=== PATIENT | female | born 1990 | race Caucasian/White ===

== ENCOUNTER 2021-01-30 02:16 | Inpatient (IN) | payer OTHER ==
[~2021-01-30] VITALS: Ht 170.2 cm; Wt 105.8 kg
[2021-01-30] VITALS (11 sets, daily range): BP systolic 108–131; BP diastolic 54–71
[2021-01-30] MEDS ORDERED: ONDANSETRON PF 4 MG/2 ML VIAL. IVP PRN (03:00)
[2021-01-30] MEDS ORDERED: ANTI-COAG MONITOR BY PHARMACY. MC PRN (03:45)
--- NOTE | 2021-01-30 05:33 | NUR ---
Pt arrived at 0210 via EMS on a gurney. Pt moved self to bed. Assessment and vitals completed. VSS. Afebrile. Bilateral lung sounds are clear. Alert and oriented x 4. Admission paperwork completed. notified and orders received. Pt oriented to room. BSC provided. Pt resting comfortably in bed.
[2021-01-30 07:42] LABS: BASO # 0.1 x10^3/uL (0.0-0.2); BASO % 1 % (0-3); EOS # 0.2 x10^3/uL (0.0-0.7); EOS % 3 % (0-3); HEMATOCRIT 35.8 % (36.0-47.0); HEMOGLOBIN 11.4 g/dL (12.0-15.5); LYMPH # 1.1 x10^3/uL (1.0-4.8); LYMPH % 19 % (24-48); MEAN CORPUSCULAR HEMOGLOBIN 23 pg (25-35); MEAN CORPUSCULAR HGB CONC 32 g/dL (31-37); MEAN CORPUSCULAR VOLUME 73 fL (79-100); MONO # 0.4 x10^3/uL (0.0-1.1); MONO % 7 % (0-9); NEUT # 4.2 x10^3/uL (1.8-7.7); NEUT % 71 % (31-73); PLATELET COUNT 123 x10^3/uL (140-400); RED BLOOD COUNT 4.94 x10^6/uL (3.50-5.40); RED CELL DISTRIBUTION WIDTH 18.5 % (11.5-14.5); WHITE BLOOD COUNT 5.9 x10^3/uL (4.0-11.0)
[2021-01-30 07:54] LABS: ALBUMIN 3.8 g/dL (3.4-5.0); CALCIUM 8.8 mg/dL (8.5-10.1); CREATININE 0.9 mg/dL (0.6-1.0); POTASSIUM 3.7 mmol/L (3.5-5.1); TOTAL PROTEIN 7.8 g/dL (6.4-8.2)
[2021-01-30] MEDS: MORPHINE SULFATE 2 MG/ML INJ. IVP PRN ×2 (08:42→19:37)
--- NOTE | 2021-01-30 10:28 | HP ---
DATE OF SERVICE: 01/30/2021 ADMIT DATE: 01/30/2021 HISTORY OF PRESENT ILLNESS: The patient is a 30-year-old female patient who presented to the Emergency Room with a complaint of redness, swelling and pain in her left lower extremity that she rated as 6/10 in severity. The pain is mostly in her left groin. Her symptoms started about 3 days. She denied any trauma. Denies any use of control pills. Denied any recent hospitalizations, any surgeries. Denied any family history of DVT or PE. She was seen apparently at [facility] and was sent to the Emergency Department to rule out DVT. She was extensively investigated and has had both lab work and imaging studies. Her lab work was essentially unremarkable and her left lower extremity venous Doppler ultrasound showed that she has deep vein thrombosis of the left lower extremity throughout involving the common femoral, superficial femoral, femoral vein junction and main femoral vein. Veins of the proximal calf are also imaged. She did have also CT angio of the chest, abdomen and pelvis and it showed that the patient has large saddle pulmonary embolus correlates with troponin for evidence of right heart strain. Extensive thrombus in the visualized left upper extremity extending into the left external iliac vein and common iliac vein, the level of the IVC confluence tiny areas wedge-shaped hypoenhancement at the splenium may relate to splenic infarct, diffuse hepatic steatosis. The patient was started on Lovenox 1 mg/kg and was transferred to [facility] for further evaluation to consult the patient service representative as well as the human relations professor. PAST MEDICAL HISTORY: Unremarkable. OBSTETRIC HISTORY: She is 4, para 3 and her last delivery was in August of this year. She has 3 children, 4-year, 1-year and 5-month old. PAST SURGICAL HISTORY: Unremarkable. ALLERGIES: She has no known drug allergies. MEDICATIONS: She is currently on no medication by prescription or otherwise. FAMILY HISTORY: Her father in his early 50s because of myocardial infarction. Her mother lives in [place] and she has cervical and ovarian cancer that apparently treated. She has also diabetes and chronic kidney disease. She has a total of 9 brothers and sisters. All of them apparently seemed to be healthy. No history of DVT or pulmonary embolism. She herself has 3 successful pregnancies and she has never had any miscarriages. PHYSICAL EXAMINATION: GENERAL: On arrival to the Emergency Room, she looked well and was clearly in no apparent respiratory distress. There is no pallor, jaundice, cyanosis or thyromegaly. No jugular venous distention. No limb edema. VITAL SIGNS: Her heart rate was 110, blood pressure was 130/75, temperature 98.7, respiratory rate was 18 and oxygen saturation was 100% on room air. HEAD, EYES, EARS, NOSE AND THROAT: Normocephalic, atraumatic. NECK: Supple. HEART: Showed normal first and second heart sounds, no gallop, rub or murmur. CHEST: Clear to auscultation, no crepitation or rhonchi. ABDOMEN: Distended, soft, nontender. NEUROLOGIC: She was awake, alert, responding appropriately. All cranial nerves intact. She moves upper extremities without difficulty. She has difficulty walking because of pain in her left lower extremity that is more swollen and somewhat red. LABORATORY DATA: On arrival showed a white cell count 7600, hemoglobin 11.7, hematocrit 36.9, MCV 73 and platelet count of 133,000 with manual differential shows 73% polymorphs, 19% lymphocytes and 6% monocytes. Her chemistry showed a serum sodium 137, potassium 3.7, chloride 100, bicarbonate 26, anion gap of 11, BUN 11, creatinine 0.7. Estimated GFR was 98 mL per minute. Her glucose was 90, calcium was 9.3, total bilirubin, AST, ALT, alkaline phosphatase were normal. CK was 87. Total protein 8.2 and albumin was 4. Her prothrombin time, INR and APTT were normal. She has had venous Doppler ultrasound of the left lower extremity, which showed that she has deep vein thrombosis of the left lower extremity veins throughout. She did have a CT angio of the chest, abdomen and pelvis which showed that the visualized portion of the thyroid are unremarkable. No enlarged mediastinal lymphadenopathy identified. Heart size is normal. No pericardial effusion. Thoracic aorta has a normal course and caliber. Pulmonary artery is not enlarged. There is a subtle pulmonary embolus noted extending predominantly into the left main pulmonary artery. There is mild enlargement of the right lateral ventricle and right atrium. Airways are patent. No consolidation or pneumothorax. No suspicious lung nodules are identified. No pleural effusion or thickening. Diffuse hepatic steatosis, tiny wedge-shaped areas of peripheral hypoenhancement noted in the spleen. Pancreas, gallbladder and adrenals are unremarkable. No perinephric inflammation or hydronephrosis. No renal or ureteral calculi are identified. The bladder is decompressed, not evaluated. Uterus is not enlarged. No abnormal adnexal masses. Large and small bowel are unremarkable. Appendix is not identified. No free intraabdominal or free air or fluid. No obstruction. Abdominal aorta has normal course and caliber thrombus noted within the left common femoral vein extending into the external iliac vein and common iliac to the level of the IVC confluence. No enlarged intra-abdominal lymph nodes are identified. No suspicious osseous lesions or acute fractures. ASSESSMENT AND PLAN: In summary, this is a 30-year-old female patient who presented with pain and swelling of her left lower extremity. She denied any chest pain, shortness of breath, cough, phlegm or hemoptysis. She was diagnosed with saddle embolus and also left lower extremity embolus that extends all the way to the IVC confluence. This seems to be an unprovoked clot and she was started on Lovenox 1 mg/kg. She does not require any oxygen and she does not have any chest pain, most of the complaint has been in her left lower extremity. My plan is to consult the patient service representative as well as the human relations professor and decide on further management accordingly. Her is in [place] and I advised her that she probably needs to call him to come home. She is not in any critical condition now, but given all this clots and the fact that they have 3 young children, she probably needs assistance with that. DAVID DR: Silvia TID: [id number]
--- NOTE | 2021-01-30 11:56 | CONS ---
DATE OF CONSULTATION: 01/30/2021 PULMONARY CONSULTATION ATTENDING PHYSICIAN: Mega Wing MD REASON FOR CONSULTATION: Pulmonary embolism and DVT. HISTORY OF PRESENT ILLNESS: The patient is a 30-year-old obese patient with a BMI of 34. She has no chronic medical problems. She was seen in the Emergency Room at [facility] with complaint of a sudden onset of swelling in her left thigh. She was also complaining of pain. She could not ambulate. The patient denies any shortness of breath, denied any chest pain. The patient denied any recent surgery. Denied any history of prolonged immobilization. The patient is not on any control pills. The patient underwent imaging studies and I have reviewed her CT angiogram. The patient had evidence of a large saddle embolism involving the distal left main pulmonary artery. There was enlargement of the right lateral ventricle as well. The patient was also noted to have a suspected splenic infarct. She also had thrombus noted in the left common femoral vein extending into the external iliac vein and common iliac vein to the level of IVC confluence. No significant intra-abdominal lymph nodes were identified. I have been asked to see her for further evaluation. She is hemodynamically stable. The patient was started on Lovenox. There is no family history of hypercoagulable state. PAST MEDICAL HISTORY: Essentially unremarkable. She has 3 kids prior to. No thromboembolic history in the past pregnancies. PAST SURGICAL HISTORY: Unremarkable. ALLERGIES: None. MEDICATIONS: Reviewed as listed in the [facility] including Lovenox. REVIEW OF SYSTEMS: A 12-point system obtained. Pertinent positives discussed in my present illness, otherwise noncontributory. All systems that were negative were reviewed as well. FAMILY HISTORY: Negative for hypercoagulable panel. ALLERGIES: None. PHYSICAL EXAMINATION: VITAL SIGNS: Reviewed. Pulse ox 98% on room air. Blood pressure stable, 121 systolic. NECK: Supple. LUNGS: Clear. CARDIOVASCULAR: With a regular rate. ABDOMEN: Soft, nontender. EXTREMITIES: With swelling in the left thigh. LABORATORY DATA: Her labs are reviewed. White cell count 5.9, hemoglobin 11.4 and platelets are 123. BUN 12, creatinine 0.9. DIAGNOSTIC DATA: Her venous Doppler of her lower extremity revealed DVT in the left lower extremity throughout. CT angiogram findings as discussed above. IMPRESSION: 1. Acute pulmonary embolism along with left lower extremity deep vein thrombosis in a patient who has no obvious risk factors. 2. She had 3 prior pregnancies and last one was 5 months ago. She had no history of thromboembolic disease during her previous pregnancies. She is not on any control pills. She has no known cancers. She has not been immobilized or had no recent surgery. She does have family history of ovarian cancer and cervical cancer in her mother. She is currently hemodynamically stable. She needs to be ruled out for hypercoagulable state. 3. No history of tobacco use or asthma. 4. Abnormal CT angiogram as well as venous Dopplers of her lower extremities as discussed above. 5. 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 RECOMMENDATIONS: 1. We will continue with present Lovenox and initiate Eliquis in the next 24 hours. 2. The patient will require minimum of 3-6 months of anticoagulation pending additional hypercoagulable workup as an outpatient. 3. We will obtain echocardiogram to assess for any significant RV dilatation. 4. CT abdomen and pelvis was also done and it did not show any significant masses or adenopathy causing any compression of the left common femoral vein, external iliac vein or common iliac vein. Thrombus was noted in these veins. 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 5. I discussed with the patient's mother and RN in detail. 6. We will follow along with you. Likely discharge in next 48 hours. 7. Consult IR d/w CARLOS/ Dr. Wing Total critical care time 39 minutes. MIRTA/BEVERLY DR: Andrew TID: [id number] MIS
--- NOTE | 2021-01-30 15:01 | NUR ---
SS following for discharge planning. SS reviewed pt chart and discussed with pt RN. Pt is from home with spouse and is currently on room air. Pulmonology and Hematology consulted for PE's and DVT's. SS will continue to follow for discharge planning.
[2021-01-30] MEDS: HYDROcodone/APAP 5/325MG 1 TAB TABLET PO PRN (22:25)
[2021-01-31 04:54] VITALS: BP 109/63
[2021-01-31 07:00] VITALS: BP 112/65
--- NOTE | 2021-01-31 09:08 | PDOC ---
PULMONARY PROGRESS NOTES DATE: 01/31/21 TIME: 09:05 Subjective no complains Vitals Vital Signs Date Time Temp Pulse Resp B/P (MAP) Pulse Ox O2 Delivery O2 Flow Rate FiO2 01/31/21 07:00 98.8 88 16 112/65 (81) 94 Room Air 98.8 General: Alert, No acute distress Lungs: Clear Cardiovascular: S1 Abdomen: Soft Neuro Exam: Alert Extremities: Other (left thigh swelling) Labs Laboratory Tests Test 01/30/21 07:30 White Blood Count 5.9 x10^3/uL (4.0-11.0) Red Blood Count 4.94 x10^6/uL (3.50-5.40) Hemoglobin 11.4 g/dL (12.0-15.5) Hematocrit 35.8 % (36.0-47.0) Mean Corpuscular Volume 73 fL (79-100) Mean Corpuscular Hemoglobin 23 pg (25-35) Mean Corpuscular Hemoglobin Concent 32 g/dL (31-37) Red Cell Distribution Width 18.5 % (11.5-14.5) Platelet Count 123 x10^3/uL (140-400) Neutrophils (%) (Auto) 71 % (31-73) Lymphocytes (%) (Auto) 19 % (24-48) Monocytes (%) (Auto) 7 % (0-9) Eosinophils (%) (Auto) 3 % (0-3) Basophils (%) (Auto) 1 % (0-3) Neutrophils # (Auto) 4.2 x10^3/uL (1.8-7.7) Lymphocytes # (Auto) 1.1 x10^3/uL (1.0-4.8) Monocytes # (Auto) 0.4 x10^3/uL (0.0-1.1) Eosinophils # (Auto) 0.2 x10^3/uL (0.0-0.7) Basophils # (Auto) 0.1 x10^3/uL (0.0-0.2) Sodium Level 137 mmol/L (136-145) Potassium Level 3.7 mmol/L (3.5-5.1) Chloride Level 102 mmol/L (98-107) Carbon Dioxide Level 27 mmol/L (21-32) Anion Gap 8 (6-14) Blood Urea Nitrogen 12 mg/dL (7-20) Creatinine 0.9 mg/dL (0.6-1.0) Estimated GFR (Cockcroft-Gault) 74.0 BUN/Creatinine Ratio 13 (6-20) Glucose Level 97 mg/dL (70-99) Calcium Level 8.8 mg/dL (8.5-10.1) Total Bilirubin 1.0 mg/dL (0.2-1.0) Aspartate Amino Transf (AST/SGOT) 16 U/L (15-37) Alanine Aminotransferase (ALT/SGPT) 24 U/L (14-59) Alkaline Phosphatase 94 U/L (46-116) Total Protein 7.8 g/dL (6.4-8.2) Albumin 3.8 g/dL (3.4-5.0) Albumin/Globulin Ratio 1.0 (1.0-1.7) Impression . 1. Acute pulmonary embolism along with left lower extremity deep vein thrombosis in a patient who has no obvious risk factors. 2. She had 3 prior pregnancies and last one was 5 months ago. She had no history of thromboembolic disease during her previous pregnancies. She is not on any control pills. She has no known cancers. She has not been immobilized or had no recent surgery. She does have family history of ovarian cancer and cervical cancer in her mother. She is currently hemodynamically stable. She needs to be ruled out for hypercoagulable state. 3. No history of tobacco use or asthma. 4. Abnormal CT angiogram as well as venous Dopplers of her lower extremities as discussed above. 5. 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 Plan . RECOMMENDATIONS: 1. We will continue with present Lovenox 2. The patient will require minimum of 3-6 months of anticoagulation pending additional hypercoagulable workup as an outpatient. 3. We will obtain echocardiogram to assess for any significant RV dilatation. 4. CT abdomen and pelvis was also done and it did not show any significant masses or adenopathy causing any compression of the left common femoral vein, external iliac vein or common iliac vein. Thrombus was noted in these veins. 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 5. I discussed with the patient's mother and RN in detail. 6. d/w IR in detail. Awaiting further rec regarding stenting of Iliac vein d/w IR/ GHAZALA Win MD Jan 31, 2021 09:08
[2021-01-31 11:00] VITALS: BP 118/67
--- NOTE | 2021-01-31 11:08 | NUR ---
SW following. Discussed with RN, pt from home with spouse, room air, regular diet. Pulmonology and Hematology following. RN advised no SW needs at this time. SW will continue to follow.
--- NOTE | 2021-01-31 12:39 | PN ---
DATE: 01/31/2021 SUBJECTIVE: The patient is resting, slightly propped up in bed, in no apparent distress. On questioning her, denied any complaint. The nursing staff did not voice any concerns, stated that she has an eventful night. PHYSICAL EXAMINATION: GENERAL: When I examined her, she looked pale, not jaundiced, cyanosed or thyromegaly. No jugular venous distention. No limb edema. VITAL SIGNS: Her heart rate was 88, blood pressure is 112/65, temperature was 98.8, respiratory rate was 16 and oxygen saturation was 94% on room air. HEAD, EYES, EARS, NOSE, AND THROAT: Normocephalic, atraumatic. NECK: Supple. HEART: Showed normal first and second heart sounds. No gallop or murmur. CHEST: Clear to auscultation, no crepitation or rhonchi. ABDOMEN: Distended, soft, nontender. NEUROLOGIC: She is grossly intact. EXTREMITIES: Examination of lower extremity showed the left lower extremity is more swollen than the right; however, there is no clubbing or cyanosis. LABORATORY DATA: She has no lab work today. ASSESSMENT: Acute pulmonary embolism and left lower extremity deep venous thrombosis that are unprovoked. She has no predisposing factor. Has 3 successful pregnancies. She is not on any control. The fact that the lower extremity deep vein thrombosis was involving on the left lower extremity arise the possibility of May-Thurner syndrome. PLAN: To continue with Lovenox. Await evaluation by the interventional radiologist regarding stenting of her left internal iliac vein. KELVIN/RADHA/BEVERLY DR: Silvia TID: [id number]
--- NOTE | 2021-01-31 12:49 | CARD ---
MR#: [id number] Date of Study: 01/30/2021 Ordering Physician: GHAZALA GUTIERREZ, Referring Physician: GHAZALA GUTIERREZ, Tech: Halima Johnson, [facility] APPROVED REPORT EXAM: Two-dimensional and M-mode echocardiogram with Doppler and color Doppler. Other Information Quality : AverageHR: 76bpm INDICATION Pulmonary Embolism 2D DIMENSIONS RVDd2.3 (2.9-3.5cm)Left Atrium(2D)2.2 (1.6-4.0cm) IVSd0.7 (0.7-1.1cm)Aortic Root(2D)2.5 (2.0-3.7cm) LVDd5.1 (3.9-5.9cm)LVOT Diameter2.0 (1.8-2.4cm) PWd0.7 (0.7-1.1cm)LVDs2.9 (2.5-4.0cm) FS (%) 43.9 %SV93.8 ml Aortic Valve AoV Peak Raul.161.6cm/sAoV VTI28.6cm AO Peak GR.10.4mmHgLVOT VTI 24.63cm AO Mean GR.6mmHg Mitral Valve MV E Uyhaxvmy14.0cm/sMV E Peak Gr.3mmHg MV DECEL [id number] A Jkjnnucy56.9cm/s MV E Mean Gr.2mmHgE/A Ratio1.4 TDI Lateral E' P. V10.23cm/sMedial E' P. V9.40cm/s E/Lateral E'7.8E/Medial E'8.5 Tricuspid Valve RAP [id number] Peak Gr.20mmHg [id number] LEFT VENTRICLE The left ventricle is normal size. There is normal left ventricular wall thickness. The left ventricu lar systolic function is normal and the ejection fraction is within normal range. The Ejection Fracti on is 50-55%. Septal motion consistent with conduction abnormality. Transmitral Doppler flow pattern is Grade II-pseudonormal filling dynamics. RIGHT VENTRICLE The right ventricle is normal size. There is normal right ventricular wall thickness. The right ventr icular systolic function is normal. ATRIA The left atrium size is normal. The right atrium size is normal. The interatrial septum is intact wit h no evidence for an atrial septal defect or patent foramen ovale as noted on 2-D or Doppler imaging. AORTIC VALVE The aortic valve is normal in structure and function. Doppler and Color Flow revealed no significant aortic regurgitation. There is no significant aortic valvular stenosis. Calculated aortic valve area is 2.86 cm2 with maximum pressure gradient of 11 mmHg and mean pressure gradient of 6 mmHg. MITRAL VALVE The mitral valve is normal in structure and function. There is no evidence of mitral valve prolapse. There is no mitral valve stenosis. Doppler and Color-flow revealed trace mitral regurgitation. TRICUSPID VALVE The tricuspid valve is normal in structure and function. Doppler and Color Flow revealed trace tricus pid regurgitation with an estimated PAP of 23 mmHg. There is no tricuspid valve stenosis. PULMONIC VALVE The pulmonic valve is not well visualized. Doppler and Color Flow revealed trace pulmonic valvular re gurgitation. GREAT VESSELS The aortic root is normal in size. The IVC is normal in size and collapses >50% with inspiration. PERICARDIAL EFFUSION There is no evidence of significant pericardial effusion. Critical Notification Critical Value: No <Conclusion> The left ventricle is normal size. The left ventricular systolic function is normal and the ejection fraction is within normal range. The Ejection Fraction is 50-55%. Doppler and Color Flow revealed no significant aortic regurgitation. There is no significant aortic valvular stenosis. Doppler and Color-flow revealed trace mitral regurgitation. Doppler and Color Flow revealed trace tricuspid regurgitation with an estimated PAP of 23 mmHg. Signed by : Dieudonne Lima MD Electronically Approved : 01/31/2021 12:48:54
--- NOTE | 2021-01-31 13:03 | PDOC2 ---
CONSULT Date of Consult Date of Consult DATE: 01/31/21 TIME: 12:58 Reason for Consult Reason for Consult: Left lower extremity DVT and pulmonary embolism Referring Physician Referring Physician: Dr. Medina Identification/Chief Complaint Chief Complaint Leg swelling and shortness of breath Source Source: Patient History of Present Illness Reason for Visit: Ibeth Hunter is a 30-year-old female with no pertinent medical history who has been admitted to [facility] for management of saddle pulmonary embolism and left lower extremity deep venous thrombosis. Patient reports that she had been doing well up until a few days ago when she noticed left leg painful swelling. She notes associated dyspnea. Denies recent surgical procedures, illnesses, immobilization, estrogen-based contraception, hormone supplementation. She went to the emergency room at [facility] and received ultrasound of the leg and CT chest, abdomen pelvis. This showed left lower extremity deep venous thrombosis extending into the left iliac vein up and up to the confluence of the IVC. This radiologic appearance was felt to be concerning for may Thurner syndrome. She was also found to have saddle PE with associated RV dysfunction. She was initially admitted to the intensive care unit and was started on therapeutic anticoagulation. She has subsequently been transferred to the hospital floor. She has seen Dr. Tsai and has discussed thrombectomy and stenting. This is planned for tomorrow. Hematology consultation has been sought to the patient's presentation with DVT She denies a history of blood clots. She denies recent air or car travel. She is interested in traveling in January or February to see if family for the holidays. She denies a family history of VTE Current Medications Current Medications Current Medications Enoxaparin Sodium (Lovenox 100mg Syringe) 100 mg Q12HR SQ Last administered on 01/31/21at 08:49; Start 01/30/21 at 09:00 Morphine Sulfate (Morphine Sulfate) 2 mg PRN Q4HRS PRN IVP SEVERE PAIN 7-10 Last administered on 01/30/21at 19:37; Start 01/30/21 at 03:00 Ondansetron HCl (Zofran) 4 mg PRN Q4HRS PRN IVP NAUSEA/VOMITING 1ST CHOICE; Start 01/30/21 at 03:00 Info (Anti-Coagulation Monitoring By Pharmacy) 1 each PRN DAILY PRN MC PER PROTOCOL Last administered on 01/30/21at 04:26; Start 01/30/21 at 03:45 Acetaminophen/ Hydrocodone Bitart (Lortab 5/325) 1 tab PRN Q4HRS PRN PO MODERATE PAIN 4-6 Last administered on 01/30/21at 22:25; Start 01/30/21 at 22:15 Allergies Allergies: Coded Allergies: No Known Drug Allergies (Unverified , 01/30/21) Physical Exam Physical Exam General: Awake, alert, no distress Head: Atraumatic, no conjunctival icterus, normal oral cavity mucosa Neck: Supple, no lymphadenopathy Chest: No trauma noted Cardiovascular: Regular rhythm, normal rate, no murmurs Respiratory: Bilateral air entry noted, lungs clear to auscultation bilaterally. No accessory muscle use Abdominal: Abdomen is soft, nontender, nondistended. Bowel sounds were normal. No hepatomegaly or splenomegaly Musculoskeletal: No deformity noted Extremities: No edema noted Skin: No rash or lesions Neurologic: Alert and oriented x3, no grossly evident neurologic deficits noted. Full neurological exam was not performed Psychiatric: Appropriate mood and affect Vitals VITALS Vital Signs Date Time Temp Pulse Resp B/P (MAP) Pulse Ox O2 Delivery O2 Flow Rate FiO2 01/31/21 11:00 99.5 87 16 118/67 (84) 95 Room Air 99.5 Labs Labs Laboratory Tests Test 01/30/21 07:30 White Blood Count 5.9 x10^3/uL (4.0-11.0) Red Blood Count 4.94 x10^6/uL (3.50-5.40) Hemoglobin 11.4 g/dL (12.0-15.5) Hematocrit 35.8 % (36.0-47.0) Mean Corpuscular Volume 73 fL (79-100) Mean Corpuscular Hemoglobin 23 pg (25-35) Mean Corpuscular Hemoglobin Concent 32 g/dL (31-37) Red Cell Distribution Width 18.5 % (11.5-14.5) Platelet Count 123 x10^3/uL (140-400) Neutrophils (%) (Auto) 71 % (31-73) Lymphocytes (%) (Auto) 19 % (24-48) Monocytes (%) (Auto) 7 % (0-9) Eosinophils (%) (Auto) 3 % (0-3) Basophils (%) (Auto) 1 % (0-3) Neutrophils # (Auto) 4.2 x10^3/uL (1.8-7.7) Lymphocytes # (Auto) 1.1 x10^3/uL (1.0-4.8) Monocytes # (Auto) 0.4 x10^3/uL (0.0-1.1) Eosinophils # (Auto) 0.2 x10^3/uL (0.0-0.7) Basophils # (Auto) 0.1 x10^3/uL (0.0-0.2) Sodium Level 137 mmol/L (136-145) Potassium Level 3.7 mmol/L (3.5-5.1) Chloride Level 102 mmol/L (98-107) Carbon Dioxide Level 27 mmol/L (21-32) Anion Gap 8 (6-14) Blood Urea Nitrogen 12 mg/dL (7-20) Creatinine 0.9 mg/dL (0.6-1.0) Estimated GFR (Cockcroft-Gault) 74.0 BUN/Creatinine Ratio 13 (6-20) Glucose Level 97 mg/dL (70-99) Calcium Level 8.8 mg/dL (8.5-10.1) Total Bilirubin 1.0 mg/dL (0.2-1.0) Aspartate Amino Transf (AST/SGOT) 16 U/L (15-37) Alanine Aminotransferase (ALT/SGPT) 24 U/L (14-59) Alkaline Phosphatase 94 U/L (46-116) Total Protein 7.8 g/dL (6.4-8.2) Albumin 3.8 g/dL (3.4-5.0) Albumin/Globulin Ratio 1.0 (1.0-1.7) Assessment/Plan Assessment/Plan Assessment: Saddle pulmonary embolism, unprovoked. 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 Given her young age, would favor hypercoagulable work-up. This will be obtained as outpatient after she is further removed from the acute clotting episode -Plan to see in hematology office in 1 month and repeat ultrasound of the left lower extremity at that time -Plan to obtain hypercoagulable work-up as outpatient -Recommend checking iron studies, B12 and folate for evaluation of anemia -Hospital discharge per pulmonology and primary service. No additional inpatient hematology evaluation recommended Hua Mathews MD Medical Oncology/Hematology Ph: [phone] NI MATHEWS MD Jan 31, 2021 13:03
[2021-01-31 15:00] VITALS: BP 119/62
[2021-01-31] MEDS: MORPHINE SULFATE 2 MG/ML INJ. IVP PRN (18:35)
[2021-01-31 19:00] VITALS: BP 123/63
[2021-01-31] MEDS: HYDROcodone/APAP 5/325MG 1 TAB TABLET PO PRN (19:49)
[2021-01-31 23:00] VITALS: BP 115/66
[2021-02-01] VITALS (12 sets, daily range): BP systolic 100–145; BP diastolic 49–83
[2021-02-01] MEDS ORDERED: HEPARIN for IV BOLUS 10,000 UNIT/10 ML VIAL. IV PRN ×2 (07:00)
[2021-02-01] MEDS: HEPARIN 25,000UTS/250ML PREMIX 250 ML IV PRN ×2 (07:21→21:58)
[2021-02-01 07:34] LABS: HEMATOCRIT 32.2 % (36.0-47.0); HEMOGLOBIN 10.2 g/dL (12.0-15.5); RED BLOOD COUNT 4.44 x10^6/uL (3.50-5.40); RED CELL DISTRIBUTION WIDTH 18.2 % (11.5-14.5); WHITE BLOOD COUNT 4.6 x10^3/uL (4.0-11.0)
[2021-02-01 07:53] LABS: ALBUMIN/GLOBULIN RATIO 0.8 (1.0-1.7); CALCIUM 8.4 mg/dL (8.5-10.1); CREATININE 0.7 mg/dL (0.6-1.0); GFR 98.9; POTASSIUM 3.7 mmol/L (3.5-5.1); TOTAL BILIRUBIN 0.4 mg/dL (0.2-1.0); TOTAL PROTEIN 6.9 g/dL (6.4-8.2)
--- NOTE | 2021-02-01 08:56 | PDOC ---
PULMONARY PROGRESS NOTES DATE: 02/01/21 TIME: 08:54 Subjective no complains Left leg with less discomfort. Vitals Vital Signs Date Time Temp Pulse Resp B/P (MAP) Pulse Ox O2 Delivery O2 Flow Rate FiO2 02/01/21 07:00 98.4 79 18 116/49 (71) 98 Room Air 98.4 General: Alert, No acute distress Lungs: Clear Cardiovascular: S1 Abdomen: Soft Neuro Exam: Alert Extremities: Other (left thigh swelling) Labs Laboratory Tests Test 02/01/21 06:30 White Blood Count 4.6 x10^3/uL (4.0-11.0) Red Blood Count 4.44 x10^6/uL (3.50-5.40) Hemoglobin 10.2 g/dL (12.0-15.5) Hematocrit 32.2 % (36.0-47.0) Mean Corpuscular Volume 72 fL (79-100) Mean Corpuscular Hemoglobin 23 pg (25-35) Mean Corpuscular Hemoglobin Concent 32 g/dL (31-37) Red Cell Distribution Width 18.2 % (11.5-14.5) Platelet Count 123 x10^3/uL (140-400) Sodium Level 139 mmol/L (136-145) Potassium Level 3.7 mmol/L (3.5-5.1) Chloride Level 104 mmol/L (98-107) Carbon Dioxide Level 28 mmol/L (21-32) Anion Gap 7 (6-14) Blood Urea Nitrogen 9 mg/dL (7-20) Creatinine 0.7 mg/dL (0.6-1.0) Estimated GFR (Cockcroft-Gault) 98.9 BUN/Creatinine Ratio 13 (6-20) Glucose Level 90 mg/dL (70-99) Calcium Level 8.4 mg/dL (8.5-10.1) Total Bilirubin 0.4 mg/dL (0.2-1.0) Aspartate Amino Transf (AST/SGOT) 16 U/L (15-37) Alanine Aminotransferase (ALT/SGPT) 23 U/L (14-59) Alkaline Phosphatase 83 U/L (46-116) Total Protein 6.9 g/dL (6.4-8.2) Albumin 3.0 g/dL (3.4-5.0) Albumin/Globulin Ratio 0.8 (1.0-1.7) Laboratory Tests Test 02/01/21 06:30 White Blood Count 4.6 x10^3/uL (4.0-11.0) Red Blood Count 4.44 x10^6/uL (3.50-5.40) Hemoglobin 10.2 g/dL (12.0-15.5) Hematocrit 32.2 % (36.0-47.0) Mean Corpuscular Volume 72 fL (79-100) Mean Corpuscular Hemoglobin 23 pg (25-35) Mean Corpuscular Hemoglobin Concent 32 g/dL (31-37) Red Cell Distribution Width 18.2 % (11.5-14.5) Platelet Count 123 x10^3/uL (140-400) Sodium Level 139 mmol/L (136-145) Potassium Level 3.7 mmol/L (3.5-5.1) Chloride Level 104 mmol/L (98-107) Carbon Dioxide Level 28 mmol/L (21-32) Anion Gap 7 (6-14) Blood Urea Nitrogen 9 mg/dL (7-20) Creatinine 0.7 mg/dL (0.6-1.0) Estimated GFR (Cockcroft-Gault) 98.9 BUN/Creatinine Ratio 13 (6-20) Glucose Level 90 mg/dL (70-99) Calcium Level 8.4 mg/dL (8.5-10.1) Total Bilirubin 0.4 mg/dL (0.2-1.0) Aspartate Amino Transf (AST/SGOT) 16 U/L (15-37) Alanine Aminotransferase (ALT/SGPT) 23 U/L (14-59) Alkaline Phosphatase 83 U/L (46-116) Total Protein 6.9 g/dL (6.4-8.2) Albumin 3.0 g/dL (3.4-5.0) Albumin/Globulin Ratio 0.8 (1.0-1.7) Impression . 1. Acute pulmonary embolism along with left lower extremity deep vein thrombosis in a patient who has no obvious risk factors. 2. She had 3 prior pregnancies and last one was 5 months ago. She had no history of thromboembolic disease during her previous pregnancies. She is not on any control pills. She has no known cancers. She has not been immobilized or had no recent surgery. She does have family history of ovarian cancer and cervical cancer in her mother. She is currently hemodynamically stable. She needs to be ruled out for hypercoagulable state. 3. No history of tobacco use or asthma. 4. Abnormal CT angiogram as well as venous Dopplers of her lower extremities as discussed above. 5. 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 Plan . RECOMMENDATIONS: 1. Patient switched to heparin per protocol today in anticipation for stenting today. 2. The patient will require minimum of 3-6 months of anticoagulation pending additional hypercoagulable workup as an outpatient. 3. Echocardiogram with normal ejection fraction and no significant RV dilatation or pulmonary hypertension. 4. CT abdomen and pelvis was also done and it did not show any significant masses or adenopathy causing any compression of the left common femoral vein, external iliac vein or common iliac vein. Thrombus was noted in these veins. 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 5. I discussed with the patient's mother and RN in detail on admission day. 6. d/w IR in detail. Patient to have stenting today. We will switch to oral anticoagulation with Eliquis tomorrow morning and likely discharge her. 7. Patient to follow-up with me in the office in 6 weeks. Will need a repeat CT angiogram and venous Dopplers. We will also get hypercoagulable panel as an outpatient. GHAZALA GUTIERREZ MD Feb 01, 2021 08:56
[2021-02-01] MEDS ORDERED: IODIXANOL 320 MG/ML 100 ML VIAL. ONE (10:30)
[2021-02-01] MEDS ORDERED: LIDOCAINE WITH 8.4% SOD BICARB 3 ML DISP.SYRIN. ONE (10:30)
[2021-02-01] MEDS ORDERED: MIDAZOLAM HCL/PF 2 MG/2 ML VIAL. ONE ×2 (10:45→11:47)
[2021-02-01] MEDS ORDERED: fentaNYL PF VIAL 100 MCG/2 ML VIAL ONE ×2 (10:45→11:47)
[2021-02-01] MEDS ORDERED: LIDOCAINE WITH 8.4% SOD BICARB 3 ML DISP.SYRIN. IJ ONE (11:00)
[2021-02-01] MEDS ORDERED: IODIXANOL 320 MG/ML 100 ML VIAL. IART ONE (11:00)
[2021-02-01] MEDS ORDERED: fentaNYL PF VIAL 100 MCG/2 ML VIAL IV ONE (11:00)
[2021-02-01] MEDS ORDERED: MIDAZOLAM HCL/PF 2 MG/2 ML VIAL. IV ONE (11:00)
[2021-02-01] MEDS ORDERED: CONTRAST GIVEN. MC PRN (11:15)
[2021-02-01] MEDS ORDERED: HEPARIN for IV BOLUS 10,000 UNIT/10 ML VIAL. ONE (12:02)
[2021-02-01] MEDS ORDERED: HEPARIN for IV BOLUS 10,000 UNIT/10 ML VIAL. IV ONE (12:15)
[2021-02-01] MEDS ORDERED: IODIXANOL 320 MG/ML 50ML VIAL. ONE (12:16)
--- NOTE | 2021-02-01 14:20 | NUR ---
critical UFH reported to MINISTERIO Newton
[2021-02-01] MEDS: HYDROcodone/APAP 5/325MG 1 TAB TABLET PO PRN ×2 (14:39→22:00)
--- NOTE | 2021-02-02 01:52 | PN ---
DATE: 02/01/2021 SUBJECTIVE: The patient is resting, slightly propped up in bed, in no apparent distress. On questioning her, denied any complaint. Nursing staff did not voice any concerns, stated that she is scheduled for stenting of her left internal and common iliac vein. She is now on a heparin drip and she was seen by the jewish history professor/oncologist and ____ hypercoagulable state and recommend further studies as an outpatient. PHYSICAL EXAMINATION: GENERAL: When I saw her this morning, she looked pale, no jaundice or cyanosis. No lymphadenopathy, no thyromegaly. No jugular venous distention. No limb edema. VITAL SIGNS: Her heart rate was 79, blood pressure is 116/49, temperature was 98.4, respiratory rate was 18 and oxygen saturation was 98% on room air. The rest of clinical exam stable. LABORATORY DATA: Her lab work this morning showed that her white cell count was 4600, hemoglobin 10, hematocrit 32, MCV 72 and platelet count of 123,000. Her chemistry showed a serum sodium 139, potassium 3.7, chloride 104, bicarbonate 28, anion gap of 7, BUN 9, creatinine 0.7. Estimated GFR was 98 mL per minute. Her glucose was 90, calcium was 8.4. Total bilirubin, AST, ALT, alkaline phosphatase were normal. Total protein 6.9, albumin 3. ASSESSMENT: Unprovoked acute pulmonary embolism and left lower extremity deep vein thrombosis deep vein thrombosis was on the left side. PLAN: To continue with heparin drip. The patient is scheduled for stenting of her left internal iliac vein. Meanwhile, I will check her iron studies and vitamin B12 given her anemia and decide according to finding. KELVIN/MAMADOU/DEVIN DR: Silvia TID: [id number]
[2021-02-02 03:37] VITALS: BP 102/47
[2021-02-02 07:00] VITALS: BP 112/41
--- NOTE | 2021-02-02 09:53 | RAD ---
02/01/2021 1. Left lower extremity and left pelvic venogram 2. Intravascular ultrasound evaluation of the IVC, left iliac veins, and left superficial femoral art sandhya 3.Mechanical thrombectomy with extirpation of matter of the left common iliac vein, external iliac ve in, common femoral vein, and superficial femoral vein. 4. Placement of a self-expanding stent into the left common femoral vein INDICATION: 30-year-old female with unprovoked left lower extremity DVT extending from the popliteal vein, throughout the left common iliac vein. Morphology on CT suggest May Thurner syndrome. Consent: The procedure was explained in its entirety to the patient or the patients designated repres entative by a member of the treatment team, including a discussion of the risks, benefits and commonl y accepted alternatives to the procedure, as well as the expected consequences of no therapy whatsoev er. Discussion of the risks included, but was not limited to, those that are most frequent and thos e that are rare but possibly severe or life-threatening, as well as the possibility of unforeseen com plications. Procedure: A timeout procedure was performed. The patient was placed in the prone position. Ultrasoun d evaluation demonstrates a patent portion of the popliteal vein in the popliteal fossa, with adjacen t thrombus. The vein was accessed using ultrasound guidance and micropuncture technique. Reference im ages were saved in the medical record. A vascular sheath was placed. Left lower extremity venograms w ere obtained demonstrating clot in the superficial femoral vein extending through the level of the le ft common iliac vein. Evaluation of the thrombosed veins was then performed using IVUS. Extensive thrombus is redemonstrate d. The IVC is found to be widely patent. High-grade compression of the left common iliac vein by the overlying right common iliac artery was seen confirming the diagnosis of May Thurner syndrome. The ve in wall appears somewhat thickened with echogenic thrombus suggesting subacute or chronic etiology. T he noncompressed portion of the left common iliac vein as an area of 116 sq mm2 with the area of comp ression demonstrating a mean area of 43 sq mm2. Mechanical thrombectomy with extirpation of matter was then performed using an Inari Clottriever mitra ce. Significant subacute chronic appearing, as well as acute appearing thrombus was removed. Subseque nt venograms demonstrated removal of essentially all previously seen thrombus. IVUS was then repeated redemonstrating May Thurner morphology. A 16 mm x 100 mm self-expanding stent was then placed. IVUS was performed through the stented portion of the vessel confirming resolution of the compression and overall patency of the vein. This was confirmed with venography. [id number] suture was placed, and the access sheath removed. Manual pressure was held. No immedi ate complications were identified. Total fluoroscopy time 12.1 minutes Dose area product 235 Ryder centimeter squared Sedation: The procedure was performed under conscious sedation including continuous cardiopulmonary m onitoring via a dedicated sedation nurse. [id number] sedation time: 120 minutes IMPRESSION: 1.Extensive left lower extremity thrombus extending from the superficial vein through the left common iliac vein successfully treated combination of thrombectomy with extirpation matter 2. Intraprocedural findings confirm the diagnosis of May Thurner syndrome was treated by placement of a self-expanding stent. Electronically signed by: Eugene Tsai MD (02/02/2021 9:50 AM) [id number]
[2021-02-02] MEDS ORDERED: ASCORBIC ACID 500 MG TABLET PO SCH (10:00)
[2021-02-02] MEDS ORDERED: FERROUS SULFATE 325 MG TABLET. PO SCH (10:00)
--- NOTE | 2021-02-02 10:05 | PN ---
DATE: 02/02/2021 SUBJECTIVE: The patient is resting, slightly propped up in bed, in no apparent distress, awake, alert, continued to complain of pain in the back of her left knee and her back. She underwent stenting of her left internal iliac vein successfully. Yesterday, she continues to be on heparin drip. She is up and about. PHYSICAL EXAMINATION: GENERAL: When I examined her, she looked well and was clearly in no apparent respiratory distress, slightly pale, but no jaundice, cyanosis or thyromegaly. No jugular venous distention. No limb edema. VITAL SIGNS: Her heart rate was 73, blood pressure is 102/47, temperature was 98.5, respiratory rate was 16 and oxygen saturation was 95%. HEAD, EYES, EARS, NOSE AND THROAT: Normocephalic, atraumatic. The rest of clinical exam stable. LABORATORY DATA: Her lab work as of yesterday showed a white cell count 4600, hemoglobin 10, hematocrit 32, MCV 72 and platelet count of 123,000. Her chemistry is unremarkable. Serum iron are consistent with iron deficiency anemia. ASSESSMENT: 1. Unprovoked left lower extremity deep vein thrombosis and acute pulmonary embolism, likely due to May-Thurner syndrome, status post stent deployment. According to the rendering equipment tender, she probably has a hypercoagulable state and recommend further workup as an outpatient. 2. Iron deficiency anemia. PLAN: To continue with heparin drip. Continue with pain management. Start the process of physical and occupational therapy and I will replenish her iron stores. Started with Venofer and/or oral ferrous sulfate and ascorbic acid. MIKE DR: Silvia TID: [id number]
--- NOTE | 2021-02-02 10:11 | PDOC ---
PULMONARY PROGRESS NOTES DATE: 02/02/21 TIME: 10:07 Subjective Doing very well. Remains on room air. Status post stenting of the left common iliac vein. Extensive thrombus was not reported. Vitals Vital Signs Date Time Temp Pulse Resp B/P (MAP) Pulse Ox O2 Delivery O2 Flow Rate FiO2 02/02/21 07:00 98.1 78 16 112/41 (64) 97 Room Air 98.1 02/01/21 14:39 2.0 General: Alert, No acute distress Lungs: Clear Cardiovascular: S1 Abdomen: Soft Neuro Exam: Alert Extremities: Other (left thigh swelling) Labs Laboratory Tests Test 02/01/21 06:30 02/01/21 13:25 02/01/21 20:20 02/02/21 02:45 White Blood Count 4.6 x10^3/uL (4.0-11.0) Red Blood Count 4.44 x10^6/uL (3.50-5.40) Hemoglobin 10.2 g/dL (12.0-15.5) Hematocrit 32.2 % (36.0-47.0) Mean Corpuscular Volume 72 fL (79-100) Mean Corpuscular Hemoglobin 23 pg (25-35) Mean Corpuscular Hemoglobin Concent 32 g/dL (31-37) Red Cell Distribution Width 18.2 % (11.5-14.5) Platelet Count 123 x10^3/uL (140-400) Sodium Level 139 mmol/L (136-145) Potassium Level 3.7 mmol/L (3.5-5.1) Chloride Level 104 mmol/L (98-107) Carbon Dioxide Level 28 mmol/L (21-32) Anion Gap 7 (6-14) Blood Urea Nitrogen 9 mg/dL (7-20) Creatinine 0.7 mg/dL (0.6-1.0) Estimated GFR (Cockcroft-Gault) 98.9 BUN/Creatinine Ratio 13 (6-20) Glucose Level 90 mg/dL (70-99) Calcium Level 8.4 mg/dL (8.5-10.1) Iron Level 21 ug/dL (50-170) Total Iron Binding Capacity 301 ug/dL (250-450) Iron Saturation 7 % (15-34) Ferritin 54 ng/mL (8-252) Total Bilirubin 0.4 mg/dL (0.2-1.0) Aspartate Amino Transf (AST/SGOT) 16 U/L (15-37) Alanine Aminotransferase (ALT/SGPT) 23 U/L (14-59) Alkaline Phosphatase 83 U/L (46-116) Total Protein 6.9 g/dL (6.4-8.2) Albumin 3.0 g/dL (3.4-5.0) Albumin/Globulin Ratio 0.8 (1.0-1.7) Vitamin B12 Level 304 pg/mL (247-911) Heparin Anti-Xa Act, Unfractionated > 1.10 IU/mL (0.30-0.70) 0.42 IU/mL (0.30-0.70) 0.17 IU/mL (0.30-0.70) Laboratory Tests Test 02/01/21 13:25 02/01/21 20:20 02/02/21 02:45 Heparin Anti-Xa Act, Unfractionated > 1.10 IU/mL (0.30-0.70) 0.42 IU/mL (0.30-0.70) 0.17 IU/mL (0.30-0.70) Impression . 1. Acute pulmonary embolism along with left lower extremity deep vein thrombosis in a patient who has no obvious risk factors, except recent finding of May Thurner syndrome. 2. She had 3 prior pregnancies and last one was 5 months ago. She had no history of thromboembolic disease during her previous pregnancies. She is not on any control pills. She has no known cancers. She has not been immobilized or had no recent surgery. She does have family history of ovarian cancer and cervical cancer in her mother. She needs to be ruled out for hypercoagulable state. 3. No history of tobacco use or asthma. 4. Abnormal CT angiogram as well as venous Dopplers of her lower extremities as discussed above. 5. 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 Interventional radiology report IMPRESSION: 1.Extensive left lower extremity thrombus extending from the superficial vein through the left common iliac vein successfully treated combination of thrombectomy with extirpation matter 2. Intraprocedural findings confirm the diagnosis of May Thurner syndrome was treated by placement of a self-expanding stent. Electronically signed by: Eugene Tsai MD (02/02/2021 9:50 AM) [id number] Plan . RECOMMENDATIONS: 1. Patient is doing well post stenting. Will discontinue heparin and initiate Eliquis per protocol. 2. The patient will require minimum of 3-6 months of anticoagulation pending additional hypercoagulable workup as an outpatient. At present her likely etiology of her DVT appears to be May Thurner syndrome 3. Echocardiogram with normal ejection fraction and no significant RV dilatation or pulmonary hypertension. 4. CT abdomen and pelvis was also done and it did not show any significant masses or adenopathy causing any compression of the left common femoral vein, external iliac vein or common iliac vein. Thrombus was noted in these veins. 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 5. I discussed with the patient's mother and RN in detail on admission day. 6. d/w IR in detail. Patient is now status post stenting of the left common iliac vein.. We will switch to oral anticoagulation with Eliquis and discharge her. 7. Patient to follow-up with me in the office in 6 weeks. Will need a repeat CT angiogram and venous Dopplers. We will also get hypercoagulable panel as an outpatient. Given a prescription for the lab test. Appointment for follow-up on March 21 is given. Patient was given all the instructions regarding safety measures while on anticoagulation. Discussed with RN. Maria Antonia to dismiss on oral Eliquis GHAZALA GUTIERREZ MD Feb 02, 2021 10:11
[2021-02-02] MEDS ORDERED: APIXABAN 5 MG TABLET. PO SCH (10:30)
[2021-02-02 11:00] VITALS: BP 124/70
[2021-02-02] MEDS ORDERED: FERR325T14 PO (11:04)
[2021-02-02] MEDS ORDERED: ASCO500C PO (11:04)
--- NOTE | 2021-02-02 11:31 | NUR ---
SW following. Discussed with RN, pt from home with spouse. Discharge order for home with self care. RN advised no SW needs.
--- NOTE | 2021-02-02 14:49 | NUR ---
Discharge Note: Patient was discharged home with self care. Patients IV was discontinued without any complications per MINISTERIO Driver. Patients [id number] at the bedside at the time of discharge education. Patient was given discharge summary/instructions, follow-ups, prescriptions and educational materials. Patient was also given a coupon for [id number] free for her new prescription of eliquis. Patients questions and concerns addressed. Patient wanted to get her outpatient labs drawn while still being here, therefore, patient was transported to outpatient services via wheelchair with all personal belongings accompanied by FRITZ Ag and [id number], who was going to take her home after her blood drawn.
[2021-02-09] MEDS ORDERED: APIXABAN 5 MG TABLET. PO SCH (09:00)
--- NOTE | 2021-03-06 11:14 | DS ---
DATE OF DISCHARGE: 02/02/2021 HOSPITAL COURSE: The patient is a 30-year-old female patient who presented to the Emergency Room with complaint of redness, swelling and pain in her left lower extremity that she rated about 6/10 in severity. The pain is mostly in the left groin. Her symptoms started about 3 days ago. She denied any trauma. She denies any use of control pills. Denied any recent hospitalizations, any surgeries. Denied any family history of DVT or PE. She was seen apparently at [facility] and was sent to the Emergency Department to rule out DVT. She was extensively investigated and has had both lab work and imaging studies. Her lab work was essentially unremarkable and her left lower extremity venous Doppler ultrasound revealed that she has deep vein thrombosis of her left lower extremity throughout involving the common femoral, superficial femoral, femoral vein junction and main femoral vein. Veins of the proximal calf are also imaged. 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 She also was found to have hepatic steatosis. The patient was started on Lovenox 1 mg/kg and was transferred to [facility] for further evaluation and treatment. She was seen in consultation by the contracts attorney as well as the artificial teeth inspector, has had an echocardiogram, which showed that the patient's left ventricular size is normal, left ventricular systolic function is normal with an ejection fraction within normal range, her ejection fraction was 50-55%. Color and Doppler flow revealed no significant aortic regurgitation or aortic stenosis and Doppler and color flow revealed trace of mitral regurgitation. There was no evidence of right sided strain pattern or significant pericardial effusion. The IVC is normal in size and collapses more than 50% with inspiration. She was seen in consultation also by the contracts attorney as well as the gullet slitter/oncologist and the interventional radiologist. She underwent mechanical thrombectomy with extirpation of matter of the left common iliac vein, external iliac vein, common femoral vein and superficial femoral vein and underwent placement of a self-expanding stent into the left common femoral vein. She was started on apixaban 10 mg twice a day. After stabilization, the patient was discharged home to continue on apixaban 10 mg twice a day for 7 days and then down to 5 mg twice a day. PHYSICAL EXAMINATION: GENERAL: On the day of discharge, the patient looked well and was clearly in no apparent respiratory distress. No pallor, jaundice, cyanosis. No thyromegaly. No jugular venous distention. No lower limb edema. VITAL SIGNS: Her heart rate was 85, blood pressure was 124/70, temperature was 97.7, respiratory rate was 18 and oxygen saturation was 97% on room air. The rest of clinical exam is stable, has not really changed. LABORATORY DATA: Her white cell count was 4600, hemoglobin 10, hematocrit 32, MCV 72 and platelet count of 123,000. Her serum sodium was 139, potassium 3.7, chloride 104, bicarbonate 28, anion gap of 7, BUN 9, creatinine 0.7. Estimated GFR was 98 mL per minute. Her glucose was 90, calcium was 8.4. Serum iron was 21, TIBC was 301 and serum saturation was only 7, her serum ferritin also was 54. DISCHARGE MEDICATIONS: She was discharged home to continue on ascorbic acid 500 mg twice a day, ferrous sulfate 325 mg twice a day together with apixaban 5 mg twice a day. FOLLOWUP: The patient will follow with her primary care physician at [facility] and also with the gullet slitter/oncologist. FINAL DISCHARGE DIAGNOSES: 1. Unprovoked left lower extremity deep vein thrombosis and acute pulmonary embolism, likely due to May-Thurner syndrome, status post stent deployment. The patient was seen by the gullet slitter. Recommended further workup for hypercoagulable state. 2. Iron deficiency anemia. MIKE DR: Silvia TID: [id number]
== END 2021-02-02 14:30 | disposition home or self-care (01) | DRG 270 ==
LOC: 1 WEST ICU 02:16 → 5 SOUTH 18:46
PROVIDERS: ADMIT Internal Medicine; ATTEND Internal Medicine
PROC: 047L3DZ Dilation of Left Femoral Artery with Intraluminal Device, Percutaneous Approach (ICD-10-PCS; principal; 2021-02-01)
PROC: 04CD3ZZ Extirpation of Matter from Left Common Iliac Artery, Percutaneous Approach (ICD-10-PCS; 2021-02-01)
PROC: 04CJ3ZZ Extirpation of Matter from Left External Iliac Artery, Percutaneous Approach (ICD-10-PCS; 2021-02-01)
PROC: 04CL3ZZ Extirpation of Matter from Left Femoral Artery, Percutaneous Approach (ICD-10-PCS; 2021-02-01)
PROC: B51C1ZZ Fluoroscopy of Left Lower Extremity Veins using Low Osmolar Contrast (ICD-10-PCS; 2021-02-01)
DX: I82.412 Acute embolism and thrombosis of left femoral vein (principal); I26.99 Other pulmonary embolism without acute cor pulmonale; I26.92 Saddle embolus of pulmonary artery without acute cor pulmonale; I87.1 Compression of vein; D50.9 Iron deficiency anemia, unspecified; E66.9 Obesity, unspecified; Z68.34 Body mass index [BMI] 34.0-34.9, adult; Z79.01 Long term (current) use of anticoagulants; Z80.41 Family history of malignant neoplasm of ovary; Z82.49 Family history of ischemic heart disease and other diseases of the circulatory system; Z80.49 Family history of malignant neoplasm of other genital organs; Z86.711 Personal history of pulmonary embolism; Z86.718 Personal history of other venous thrombosis and embolism
CPT/HCPCS: 36415; 37187; 37236; 37252; 75820; 76937; 80053; 81241; 82607; 82728; 83090; 83540; 83550; 85025; 85027; 85520; 85610; 93306; 99152; 99153; C1753; C1885; C1892; C1894; J1644; J1650; J2250; J2270; J3010; J3490; Q9967; 70330; G0378

== ENCOUNTER → 2021-02-02 | Outpatient (CLI) | payer OTHER ==
[~2021-02-02] MED LIST: ASCO500C PO; FERR325T14 PO
[2021-02-02 07:00] VITALS: BP 112/41
== END ==
LOC: LAB 14:42
PROVIDERS: ATTEND Internal Medicine
DX: I82.492 Acute embolism and thrombosis of other specified deep vein of left lower extremity (principal)
CPT/HCPCS: 36415; 83090

== ENCOUNTER → 2021-03-05 | Outpatient (CLI) | payer OTHER ==
[2021-03-07 13:16] LABS: ANTITHROMBIN III SEE SEPARATE REPORT; CARDIOLIPIN ANTIBODIES SEE SEPARATE REPORT; PROTEIN C ACTIVITY SEE SEPARATE REPORT; PROTEIN S ACTIVITY SEE SEPARATE REPORT
== END ==
LOC: ONCLAB 09:58
PROVIDERS: ATTEND Internal Medicine Hematology & Oncology
DX: I82.403 Acute embolism and thrombosis of unspecified deep veins of lower extremity, bilateral (principal)
CPT/HCPCS: 81240; 85300; 85302; 85306; 86147

== ENCOUNTER → 2021-03-07 | Outpatient (CLI) | payer OTHER ==
--- NOTE | 2021-03-07 08:12 | RAD ---
EXAMINATION: US DPLX VENOUS EXTREMITY LOWER LT (LOWER EXTREMITY VENOUS ULTRASOUND) CLINICAL HISTORY: Follow-up left lower extremity DVT TECHNIQUE: Sonographic grayscale images obtained of the left lower extremity deep venous system with color flow Doppler, compression, and augmentation techniques as indicated. Images obtained and store d in a permanent archive. COMPARISON: 01/29/2021 FINDINGS: No evidence of absent flow or incompressibility within the common femoral vein, femoral vein, or popl iteal vein. Visualized calf veins appear patent on limited evaluation. IMPRESSION: No evidence of residual left lower extremity DVT. Electronically signed by: French Waddell DO (03/07/2021 8:10 AM) [facility]
== END ==
LOC: US 06:07
PROVIDERS: ATTEND Internal Medicine Hematology & Oncology
DX: I82.403 Acute embolism and thrombosis of unspecified deep veins of lower extremity, bilateral (principal)
CPT/HCPCS: 93971

== ENCOUNTER → 2021-03-12 | Outpatient (CLI) | payer OTHER ==
[~2021-03-12] MED LIST changes: +IOHEXOL 350 MG/ML 100 ML VIAL. IV ONE
--- NOTE | 2021-03-12 13:13 | RAD ---
CTA CHEST History: Follow-up pulmonary embolism. Currently on treatment. Comparison: 01/29/2021. Technique: CTA of the pulmonary arteries with intravenous contrast. 3-D postprocessing was performed. Findings: Pulmonary arteries: A known left pulmonary embolism is now smaller in size and more distal, involving lingular segmental branches and the left lower lobar branch extending minimally into subsegmental le vels. Overall significantly decreased in clot burden from comparison. Aorta and great vessels: No aneurysm or dissection of the aortic arch or thoracic aorta. Thyroid: No significant abnormalities. Mediastinum and nohemy: No mediastinal masses or adenopathy is seen. Esophagus: The visualized esophagus is normal. Heart: The heart is normal in size. There is no pericardial effusion. No evidence of right heart stra in. Airways, Lungs, Pleura: Airways are patent. Small posterior left lower lobe consolidation/infarcts, s imilar to comparison. No significant pulmonary nodules. Upper abdomen: Diffuse hypodensity of the liver compatible steatosis. Spleen at the upper limits of n ormal for size measuring 12.3 cm AP. Partially visualized hypoattenuating wedges of the spleen are ag ain noted. Osseous structures and soft tissues: Within normal limits for age. Impression: 1. Persistent but decreased size and extent of left sided pulmonary embolism. No evidence of right h eart strain. 2. Hepatic steatosis. 3. Similar appearance of possible small splenic infarcts. Borderline splenomegaly. ------ Exposure: One or more of the following individualized dose reduction techniques were utilized for thi s examination: 1. Automated exposure control 2. Adjustment of the mA and/or kV according to patient size 3. Use of iterative reconstruction technique. Electronically signed by: David Messer MD (03/12/2021 1:10 PM) [facility]
== END ==
LOC: CT 09:11
PROVIDERS: ATTEND Internal Medicine Critical Care Medicine
DX: I26.99 Other pulmonary embolism without acute cor pulmonale (principal); K76.0 Fatty (change of) liver, not elsewhere classified
CPT/HCPCS: 71275; Q9967

== ENCOUNTER → 2021-06-13 | Outpatient (CLI) | payer OTHER ==
[~2021-06-13] MED LIST changes: -IOHEXOL 350 MG/ML 100 ML VIAL. IV ONE
== END ==
LOC: ONCLAB 10:27
PROVIDERS: ATTEND Internal Medicine Hematology & Oncology
DX: I82.403 Acute embolism and thrombosis of unspecified deep veins of lower extremity, bilateral (principal)
CPT/HCPCS: 36415; 86147

== ENCOUNTER → 2021-06-15 | Outpatient (CLI) | payer OTHER ==
[~2021-06-15] MED LIST changes: +IOHEXOL 350 MG/ML 100 ML VIAL. IV ONE
--- NOTE | 2021-06-15 09:20 | RAD ---
INDICATION: Reason: HX DVT, HX LT THROMBECTOMY / [facility]. Instructions: / History: COMPARISON: March 07, 2021 TECHNIQUE: Grayscale, color and doppler ultrasound images were obtained of the bilateral lower extrem ity venous vasculature. RIGHT: No thrombus identified in the common femoral vein, femoral vein, popliteal vein or visualized calf ve ins. LEFT: No thrombus identified in the common femoral vein, femoral vein, popliteal vein or visualized calf ve ins. IMPRESSION: * No thrombus identified in deep venous system of bilateral lower extremities. Electronically signed by: Eliezer Bazzi MD (06/15/2021 9:18 AM) [id number]
--- NOTE | 2021-06-15 13:05 | RAD ---
PQRS Compliance Statement: One or more of the following individualized dose reduction techniques were utilized for this examinat ion: 1. Automated exposure control 2. Adjustment of the mA and/or kV according to patient size 3. Use of iterative reconstruction technique Exam performed: CT pulmonary angiography HISTORY: Follow-up pulmonary embolism. DATE OF SERVICE: 320 08/10/2021 COMPARISON: Single irregular wall 2020. TECHNIQUE: Contiguous helical acquisitions are obtained through the chest during intravenous administ ration of 100 cc of Omnipaque 350. Sagittal and coronal MIP images are obtained and reviewed. FINDINGS: There is adequate opacification of the pulmonary arteries. Previously seen filling defect in the left main pulmonary artery is significantly smaller. The remainder of the pulmonary arteries are well-opa cified. The neck and intrathoracic great vessels otherwise appear grossly normal in course and caliber. Heart size is within limits of normal. No pericardial effusion. No right heart strain is seen. Structures at the thoracic inlet including both lobes of the thyroid gland appear grossly normal. Lungs are essentially clear. No focal infiltrates, effusion or pneumothorax is identified. Limited evaluation of the upper abdominal structures demonstrates diffuse hepatic steatosis. Previous ly seen splenic infarcts are less severely visualized on the current study. Bones are normal. IMPRESSION: Further decrease in the proper with a small persistent filling defect in the left inferior segment pu lmonary artery. No evidence of right heart strain is seen. Diffuse hepatic steatosis Electronically signed by: Ivana Roque MD (06/15/2021 1:02 PM) [facility]
== END ==
LOC: US 08:10
PROVIDERS: ATTEND Internal Medicine Critical Care Medicine
DX: K76.0 Fatty (change of) liver, not elsewhere classified (principal); I26.99 Other pulmonary embolism without acute cor pulmonale; Z86.718 Personal history of other venous thrombosis and embolism
CPT/HCPCS: 71275; 93970; Q9967

== ENCOUNTER → 2021-08-13 | Outpatient (CLI) | payer OTHER ==
[~2021-08-13] MED LIST changes: -IOHEXOL 350 MG/ML 100 ML VIAL. IV ONE
[2021-08-13 12:39] LABS: BASO % 1 % (0-3); EOS # 0.1 x10^3/uL (0.0-0.7); EOS % 3 % (0-3); HEMATOCRIT 42.4 % (36.0-47.0); HEMOGLOBIN 14.5 g/dL (12.0-15.5); LYMPH # 1.5 x10^3/uL (1.0-4.8); LYMPH % 32 % (24-48); MEAN CORPUSCULAR HEMOGLOBIN 28 pg (25-35); MEAN CORPUSCULAR HGB CONC 34 g/dL (31-37); MEAN CORPUSCULAR VOLUME 83 fL (79-100); MONO # 0.3 x10^3/uL (0.0-1.1); MONO % 7 % (0-9); NEUT # 2.6 x10^3/uL (1.8-7.7); NEUT % 57 % (31-73); PLATELET COUNT 129 x10^3/uL (140-400); RED BLOOD COUNT 5.09 x10^6/uL (3.50-5.40); RED CELL DISTRIBUTION WIDTH 14.3 % (11.5-14.5); WHITE BLOOD COUNT 4.6 x10^3/uL (4.0-11.0)
[2021-08-13 12:52] LABS: PROTHROMBIN TIME PATIENT 13.8 SEC (11.7-14.0)
[2021-08-16 07:04] LABS: LUPUS ANTICOAGULANT SEE SEPARATE REPORT
== END ==
LOC: ONCLAB 12:00
PROVIDERS: ATTEND Internal Medicine Hematology & Oncology
DX: I82.403 Acute embolism and thrombosis of unspecified deep veins of lower extremity, bilateral (principal)
CPT/HCPCS: 36415; 85025; 85610; 86146